=== PATIENT | female | born 1940 | race Caucasian/White ===

== ENCOUNTER → 2017-02-27 | Day surgery (SDC) | payer OTHER ==
--- NOTE | 2017-03-01 11:48 | PATH ---
Surgical Pathology Report Patient Name: PAYAM HOOKS [facility]. Rec. #: [id number] /Age/Gender: 1940 (Age: 76) / F Account: [id number] Location: [facility] RADIOLOGY U Taken: 02/27/2017 Received: 02/27/2017 Reported: 03/01/2017 Physicians: Hermilo Britton M.D. Specimen(s) Received LEFT BREAST CORE BIOPSY 12:00, 4CM FN Clinical History Ultrasound findings: Suspicious Final Diagnosis BREAST, LEFT, 12:00, 4 CMFN, CORE BIOPSY: BENIGN PREDOMINANTLY FATTY BREAST TISSUE WITH FOCAL DENSE HYALINIZING FIBROSIS AND HISTIOCYTIC CELL REACTION CONSISTENT WITH FAT NECROSIS. NEGATIVE FOR MALIGNANCY. Electronically Signed Meagan Fam M.D. Gross Description Received in formalin labeled "left breast biopsy 12:00, 4 cmfn," is a 1.6 x 1.5 x 0.2 cm aggregate of multiple matthew-yellow, irregular to cylindrical portions of fibroadipose tissue. The formalin is filtered and the specimen is entirely submitted in one cassette. Time to formalin fixation: 2 minutes Total formalin fixation time: Approximately 6 hours. /02/27/2017 saudi02/27/2017
== END | disposition home or self-care (01) ==
LOC: FRADUS-SUR 12:56
PROVIDERS: ATTEND Surgery Surgical Oncology
PROC: 0HBU3ZX Excision of Left Breast, Percutaneous Approach, Diagnostic (ICD-10-PCS; principal; 2017-02-27)
DX: N63.20 Unspecified lump in the left breast, unspecified quadrant (principal); N64.89 Other specified disorders of breast
CPT/HCPCS: 19083; 87899; 88305-TC; A4648; G0206-TC

== ENCOUNTER 2018-02-28 13:10 | Emergency (ER) | payer OTHER ==
[2018-02-28 13:25] VITALS: BP 151/79; PULSE 62; TEMP 98.1; BMI 20.7
--- NOTE | 2018-02-28 13:43 | PDOC ---
History of Present Illness - General Chief Complaint: Injury Stated Complaint: fall Time Seen by Provider: 02/28/18 13:43 - History of Present Illness Initial Comments: 02/28/18 15:14 Chief complaint: Discoloration of the face History of present illness: On Monday, patient tripped over rug, struck the left side of her face on the door jam. No loss of consciousness, no significant pain, visual or neurologic symptoms, or abrasion laceration. Today she noticed discoloration around the eye and the left cheek. Came in at the suggestion of a friend. Review of systems: Denies blurred or double vision, facial or head pain, neck pain, chest pain, shortness of breath, abdominal pain, nausea, vomiting, diarrhea, focal neurologic symptoms, unsteadiness of gait. Remainder systems reviewed and found to be negative. Past medical history: Breast cancer in remission. NH, mitral valve disease. No diabetes Social/family history reviewed and noncontributory Physical exam: Alert oriented 3 well-developed well-nourished in no acute distress cheerful and cooperative. Denies any pain or other discomfort associated with injury, fully active without any neurological symptoms Afebrile, vital signs normal Head atraumatic. PERRLA, fundi benign with sharp disc margins and good central venous pulsations, ENT clear. There is ecchymoses in the soft tissues around the left eye and tracking down the left cheek. There is no swelling or induration. There is no tenderness of the facial bones including the orbit, maxilla, or mandible. There is no sensory deficit in V2. EOMs are full without diplopia. Visual ortiz are intact. Conjunctivae are clear. Corneas clear. Anterior chamber clear. Neck without tenderness or deformity, full range of motion without pain. Chest clear, full breath sounds bilaterally, no chest wall or rib cage tenderness or deformity CV regular without murmur rub or gallop Abdomen soft nontender without mass or organomegaly No tenderness or deformity of the pelvis or spine Neurological C2 to 12 intact. Strength full and symmetric. No focal sensory or motor deficits. Cerebellar intact. Gait stable and unimpaired Impression: Facial contusion, no sign of significant head injury, facial fracture, or eye trauma Plan: Reassure. Since there is no pain, medication as not needed. Follow-up if symptoms develop. Fully ambulatory and cheerful, without pain or other symptoms at discharge with to follow-up as needed. Past History - Past Medical History Allergies/Adverse Reactions: Allergies Allergy/AdvReac Type Severity Reaction Status Date / Time Sulfa (Sulfonamide Allergy Severe Itching Verified 02/28/18 13:11 Antibiotics) epinephrine AdvReac Intermediate PALPITATION Verified 02/28/18 13:11 Home Medications: Ambulatory Orders Atorvastatin Ca [Lipitor] 80 mg PO HS 07/15/14 Famotidine [Pepcid -] 20 mg PO BID 07/15/14 Folic Acid - 1 mg PO DAILY 07/15/14 Latanoprost 0.005% Eye Drops [Xalatan 0.005% Eye Drops -] 1 drop OU HS 07/15/14 Multivitamins [Multivit ([facility] Formul[facility])] 1 tab PO DAILY 07/15/14 Nebivolol HCl [Bystolic] 5 mg PO HS 07/15/14 [place]-3 Fatty Acids [[place]-3] 2,000 mg PO BID 07/15/14 Ranolazine [Ranexa] 500 mg PO BID 07/15/14 Aspirin 81 mg PO DAILY 02/28/18 Anemia: No Asthma: No Cancer: Yes (RT BREAST) Cardiac Disorders: Yes (NH 2009) CVA: No COPD: No CHF: No Dementia: No Diabetes: No GI Disorders: No Disorders: No HTN: Yes Hypercholesterolemia: Yes Liver Disease: No Seizures: No Thyroid Disease: No - Surgical History Abdominal Surgery: No Appendectomy: No Cardiac Surgery: Yes (ANGIOPLASTY 2009) Cholecystectomy: No Lung Surgery: No Neurologic Surgery: No Orthopedic Surgery: Yes (RIGHT THR 2009) - Immunization History Td Vaccination: Yes TDAP Vaccination: Yes Immunization Up to Date: Yes - Suicide/Smoking/Psychosocial Hx Smoking History: Never smoked Have you smoked in the past 12 months: No Hx Alcohol Use: No Drug/Substance Use Hx: No Substance Use Type: None Hx Substance Use Treatment: No *Physical Exam - Vital Signs Last Vital Signs Temp Pulse Resp BP Pulse Ox 98.1 F 62 18 151/79 100 02/28/18 13:11 02/28/18 13:11 02/28/18 13:11 02/28/18 13:11 02/28/18 13:11 *DC/Admit/Observation/Transfer Diagnosis at time of Disposition: Facial contusion Qualifiers: Encounter type: initial encounter Qualified Code(s): S00.83XA - Contusion of other part of head, initial encounter - Discharge Dispostion Disposition: HOME Condition at time of disposition: Stable - Referrals - Patient Instructions Printed Discharge Instructions: DI for Contusion - Post Discharge Activity
== END 2018-02-28 13:57 | disposition home or self-care (01) ==
LOC: FER 13:10
DX: S00.83XA Contusion of other part of head, initial encounter (principal); W18.39XA Other fall on same level, initial encounter; Y93.89 Activity, other specified; Y92.009 Unspecified place in unspecified non-institutional (private) residence as the place of occurrence of the external cause; Z85.3 Personal history of malignant neoplasm of breast; I10 Essential (primary) hypertension; E78.00 Pure hypercholesterolemia, unspecified; I25.2 Old myocardial infarction
CPT/HCPCS: 99282-25

== ENCOUNTER 2022-07-26 10:36 | Emergency (ER) | payer OTHER ==
[2022-07-26 11:00] VITALS: BP 166/90; PULSE 67; RESP 18; TEMP 98; BMI 18.5
[2022-07-26] MEDS ORDERED: MECLIZINE HCL 25 MG TABLET (FP) PO ONE (11:06)
[2022-07-26] MEDS ORDERED: MECLIZINE HCL 25 MG TABLET (FP) ONE (11:09)
== END 2022-07-26 13:08 | disposition home or self-care (01) ==
LOC: FER 10:36
DX: H81.11 Benign paroxysmal vertigo, right ear (principal)
CPT/HCPCS: 70450-TC; 99284-25

== ENCOUNTER 2023-01-03 06:35 | Day surgery (SDC) | payer OTHER ==
[2022-12-26 12:23] VITALS: BMI 18.5
[2023-01-03] MEDS ORDERED: TROPICAMIDE 1% OPHTH SOLN 15 ML BOTTLE ONE (06:38)
[2023-01-03] MEDS ORDERED: CYCLOPENTOLATE HCL 1% OPHTH SOLN 2 ML BOTTLE ONE (06:38)
[2023-01-03] MEDS ORDERED: PHENYLEPHRINE 2.5% OPTHALMIC DROP 2ML BOTTLE ONE (06:38)
[2023-01-03] MEDS: KETOROLAC TROMETHAMINE 0.5% EYE DROP 1 DROP DROPS OS SCH ×3 (07:05→07:15)
[2023-01-03] MEDS: OFLOXACIN 0.3% OPHTHALMIC SOLUTION 5 ML BOTTLE OS SCH ×3 (07:05→07:15)
[2023-01-03] MEDS: TROPICAMIDE 1% OPHTH SOLN 15 ML BOTTLE OS SCH ×3 (07:05→07:15)
[2023-01-03] MEDS: PHENYLEPHRINE 2.5% OPHTH SOLN 15 ML BOTTLE OS SCH ×3 (07:05→07:15)
[2023-01-03] MEDS: CYCLOPENTOLATE HCL 1% OPHTH SOLN 2 ML BOTTLE OS SCH ×3 (07:05→07:15)
[2023-01-03 07:08] VITALS: RESP 16
[2023-01-03] MEDS ORDERED: EPINEPHrine/PF 1 MG/1 ML (1:1,000) AMPULE ONE (07:19)
[2023-01-03] MEDS ORDERED: PHENYLEPHRINE/KETOROLAC 4 ML VIAL IO ONE (07:19)
[2023-01-03] MEDS ORDERED: TRYPAN BLUE 0.5 ML DISP.SYRIN ONE (07:19)
[2023-01-03] MEDS ORDERED: EPI-SHUGARCAINE (EPINEPHRINE 0.025% & LIDOCAINE-PF 0.75%) 4ML ONE (07:19)
[2023-01-03] MEDS ORDERED: BETAXOLOL HCL 0.25% OPHTHALMIC 10 ML DROPSBTL ONE (07:19)
[2023-01-03] MEDS ORDERED: BACITRACIN/POLYMYXIN OPH OINT 3.5 GM TUBE ONE (07:19)
[2023-01-03] MEDS ORDERED: ACETYLCHOLINE 1:100 INTRA-OCUL 20 MG/2 ML KIT ONE (07:20)
[2023-01-03] MEDS ORDERED: POVIDONE-IODINE 5% OPHTHALMIC PREP 30 ML SOLUTION ONE (07:20)
[2023-01-03] MEDS ORDERED: NEO/POLYMYX B SULF/DEXAMETH OPHTHALMIC 5ML BOTTLE ONE (07:20)
[2023-01-03] MEDS ORDERED: TETRACAINE 0.5% OPHTH SOLN 2 ML BOTTLE ONE (07:20)
[2023-01-03] MEDS ORDERED: BSS (NA/CA/MG/K) BALANCED SALT SOLUTION OPHTH SOLN 15 ML BOTTLE ONE (07:20)
[2023-01-03] MEDS ORDERED: ACETAMINOPHEN 325 MG TABLET (FP) PO PRN ×3 (07:39→09:21)
[2023-01-03] MEDS ORDERED: MIDAZOLAM HCL 2 MG/2 ML SINGLE DOSE VIAL ONE (07:57)
[2023-01-03] MEDS ORDERED: ONDANSETRON 4 MG/2 ML VIAL ONE (08:37)
[2023-01-03 09:32] VITALS: TEMP 97.9
[2023-01-03 10:01] VITALS: BP 108/61; PULSE 64
== END 2023-01-03 09:55 | disposition home or self-care (01) ==
LOC: FASU 06:35
PROVIDERS: ATTEND Ophthalmology
PROC: 08RK3JZ Replacement of Left Lens with Synthetic Substitute, Percutaneous Approach (ICD-10-PCS; principal; 2023-01-03 08:46)
DX: H25.89 Other age-related cataract (principal)
CPT/HCPCS: 66984; V2632; J1097

== ENCOUNTER 2023-03-18 16:08 | Inpatient (IN) | payer OTHER ==
[2023-03-18] MEDS ORDERED: SODIUM CHLORIDE 0.9% 500 ML INFUS.BAG IV ONE (17:39)
[2023-03-18 17:46] LABS: BASO % 0.3 % (0-2.0); EOS % 0.6 % (0-4.5); HEMATOCRIT 37.4 % (32.4-45.2); HEMOGLOBIN 12.9 GM/dL (10.7-15.3); LYMPH % 10.7 % (8-40); MCH 31.4 pg (25.7-33.7); MCHC 34.4 g/dl (32.0-36.0); MEAN CELL VOLUME 91.4 fl (80-96); MONO % 2.1 % (3.8-10.2); NEUT % 86.3 % (42.8-82.8); PLATELET COUNT 128 10^3/uL (134-434); RDW 14.8 % (11.6-15.6)
[2023-03-18 18:05] LABS: INR 1.09 (0.83-1.09); PROTHROMBIN TIME (PATIENT) 12.6 SEC (9.7-13.0)
[2023-03-18 18:08] LABS: ACTIVATED PTT 29.4 SECONDS (25.2-36.5)
[2023-03-18 18:09] LABS: POTASSIUM 5.1 mmol/L (3.5-5.1)
[2023-03-18 18:11] LABS: ALBUMIN 3.7 g/dl (3.4-5.0); BLOOD UREA NITROGEN 32.5 mg/dL (7-18); CALCIUM 8.7 mg/dL (8.5-10.1); MAGNESIUM 2.5 mg/dL (1.8-2.4)
[2023-03-18 18:14] LABS: CREATININE 1.4 mg/dL (0.55-1.3)
[2023-03-18 18:17] LABS: BILIRUBIN,TOTAL 1.1 mg/dL (0.2-1); TOT PROT 6.8 g/dl (6.4-8.2)
[2023-03-18] MEDS ORDERED: ACETAMINOPHEN 1000 MG/100 ML BAG IVPB ONE (19:15)
[2023-03-18] MEDS ORDERED: ACETAMINOPHEN INJECTION 100 ML IVPB ONE (20:52)
[2023-03-18] MEDS: SODIUM CHLORIDE 1,000 ML IV SCH (21:20)
[2023-03-18] MEDS ORDERED: OSELTAMIVIR PHOSPHATE 75 MG CAPSULE ONE (21:23)
[2023-03-18] MEDS: OSELTAMIVIR PHOSPHATE 30 MG CAPSULE PO SCH (21:29)
[2023-03-18 21:54] LABS: POTASSIUM 4.5 mmol/L (3.5-5.1)
[2023-03-18 21:56] LABS: CALCIUM 7.5 mg/dL (8.5-10.1)
[2023-03-18 21:56] LABS: BILIRUBIN,DIRECT 0.2 mg/dL (0.0-0.2)
[2023-03-18 21:57] LABS: BLOOD UREA NITROGEN 32.7 mg/dL (7-18)
[2023-03-18] MEDS ORDERED: ACETAMINOPHEN 325 MG TABLET (FP) PO PRN (21:57)
[2023-03-18 21:59] LABS: CREATININE 1.2 mg/dL (0.55-1.3)
[2023-03-18 22:02] LABS: EPI CELLS 12 /uL (0-25.1); HYALINE CASTS 6 /uL (0-3.1); URINE APPEARANCE CLOUDY; URINE BILIRUBIN 2+ (NEGATIVE); URINE COLOR DK YELLOW; URINE GLUCOSE (UA) NEGATIVE (NEGATIVE); URINE KETONE TRACE (NEGATIVE); URINE LEUK ESTERASE 1+ (NEGATIVE); URINE NITRITE POSITIVE (NEGATIVE); URINE PROTEIN 1+ (NEGATIVE); URINE RBC 14 /uL (0-23.9); URINE WBC 19 /uL (0-25.8)
[2023-03-18] MEDS ORDERED: HEPARIN NA (PORCINE) 5,000 UNITS/ML 1ML VIAL ONE (22:18)
[2023-03-18] MEDS: HEPARIN NA (PORCINE) 5,000 UNITS/ML 1ML VIAL SQ SCH (22:22)
[2023-03-18] MEDS ORDERED: SODIUM CHLORIDE 1,000 ML IV STA (22:50)
[2023-03-18 23:26] LABS: URINE BACTERIA 4.8 /uL (0-1359); URINE CRYSTALS NONE SEEN /hpf
[2023-03-19] MEDS ORDERED: CALCIUM CARBONATE 650 MG TABLET PO SCH (01:25)
[2023-03-19] MEDS: CALCIUM CARBONATE 650 MG TABLET PO SCH ×2 (02:49→12:06)
[2023-03-19] MEDS ORDERED: ATORVASTATIN CA 20 MG TABLET (FP) ONE ×2 (09:48→21:42)
[2023-03-19 09:49] LABS: PHOSPHOROUS 3.8 mg/dL (2.5-4.9)
[2023-03-19] MEDS ORDERED: FOLIC ACID 1 MG TABLET (FP) ONE ×2 (09:49→21:43)
[2023-03-19] MEDS ORDERED: HEPARIN NA (PORCINE) 5,000 UNITS/ML 1ML VIAL ONE (09:49)
[2023-03-19] MEDS: ATORVASTATIN CA 20 MG TABLET (FP) PO SCH (10:00)
[2023-03-19] MEDS: FOLIC ACID 1 MG TABLET (FP) PO SCH (10:00)
[2023-03-19] MEDS ORDERED: OMEGA-3 ACID ETHYL ESTERS (FATTY-ACIDS) 1 GM CAPSULE (FP) PO SCH (10:00)
[2023-03-19] MEDS: HEPARIN NA (PORCINE) 5,000 UNITS/ML 1ML VIAL SQ SCH (10:00)
[2023-03-19 11:52] LABS: BASO % 0.2 % (0-2.0); EOS % 0.5 % (0-4.5); HEMATOCRIT 31.8 % (32.4-45.2); HEMOGLOBIN 10.6 GM/dL (10.7-15.3); LYMPH % 9.9 % (8-40); MCH 30.7 pg (25.7-33.7); MCHC 33.2 g/dl (32.0-36.0); MEAN CELL VOLUME 92.5 fl (80-96); MEAN PLT VOLUME 8.1 fl (7.5-11.1); MONO % 4.5 % (3.8-10.2); NEUT % 84.9 % (42.8-82.8); PLATELET COUNT 105 10^3/uL (134-434); RBC 3.44 M/mm3 (3.60-5.2); RDW 14.4 % (11.6-15.6); WHITE BLOOD COUNT 6.3 K/mm3 (4.0-10.0)
[2023-03-19] MEDS: OSELTAMIVIR PHOSPHATE 30 MG CAPSULE PO SCH (12:06)
[2023-03-19 12:16] LABS: POTASSIUM 3.9 mmol/L (3.5-5.1)
[2023-03-19 12:20] LABS: BLOOD UREA NITROGEN 25.6 mg/dL (7-18); CALCIUM 7.6 mg/dL (8.5-10.1); MAGNESIUM 2.1 mg/dL (1.8-2.4)
[2023-03-19 12:24] LABS: PHOSPHOROUS 3.1 mg/dL (2.5-4.9)
[2023-03-19 12:25] LABS: BILIRUBIN,TOTAL 0.7 mg/dL (0.2-1)
[2023-03-19 12:26] LABS: TOT PROT 5.2 g/dl (6.4-8.2)
[2023-03-19 12:29] LABS: ALBUMIN 2.7 g/dl (3.4-5.0)
[2023-03-19] MEDS ORDERED: SODIUM CHLORIDE 500 ML IV STA (13:19)
[2023-03-19] MEDS ORDERED: ENOXAPARIN NA (PORCINE) 40 MG/0.4 ML DISP.SYRIN SQ SCH ×2 (13:30→14:00)
[2023-03-19] MEDS: METOPROLOL TARTRATE 25 MG TABLET (FP) PO SCH ×2 (17:35→21:45)
[2023-03-19 18:17] LABS: ALLENS TEST POSITIVE; ARTERIAL BLD GAS O2 SATURATION 86.7 % (95-98); ARTERIAL BLOOD GAS BASE EXCESS -5.1 mmol/L (-2-2); ARTERIAL BLOOD GAS PO2 49.3 mmHg (80-100)
[2023-03-19] MEDS ORDERED: METOPROLOL TARTRATE 25 MG TABLET (FP) ONE (21:42)
[2023-03-19] MEDS ORDERED: ASPIRIN 81 MG CHEWABLE TABLETS ONE (21:43)
[2023-03-19] MEDS ORDERED: CEFTRIAXONE 1 GM/50 ML BAG ONE (21:43)
[2023-03-19] MEDS: SODIUM CHLORIDE 1,000 ML IV SCH (21:45)
[2023-03-19] MEDS: ASPIRIN 81 MG CHEWABLE TABLETS PO SCH (21:45)
[2023-03-19] MEDS: CEFTRIAXONE 1 GM in DEXTROSE 5%-WATER 100 ML IVPB SCH (21:45)
[2023-03-19] MEDS: EZETIMIBE 10 MG TABLET (FP) PO SCH (23:15)
[2023-03-19] MEDS: OMEGA-3 ACID ETHYL ESTERS (FATTY-ACIDS) 1 GM CAPSULE (FP) PO SCH (23:15)
[2023-03-20 07:50] LABS: BASO % 0.2 % (0-2.0); HEMATOCRIT 27.7 % (32.4-45.2); HEMOGLOBIN 9.6 GM/dL (10.7-15.3); LYMPH % 19.2 % (8-40); MCH 30.9 pg (25.7-33.7); MCHC 34.5 g/dl (32.0-36.0); MEAN CELL VOLUME 89.4 fl (80-96); MEAN PLT VOLUME 8.4 fl (7.5-11.1); MONO % 7.3 % (3.8-10.2); NEUT % 71.3 % (42.8-82.8); PLATELET COUNT 107 10^3/uL (134-434); RBC 3.09 M/mm3 (3.60-5.2); RDW 14.4 % (11.6-15.6); WHITE BLOOD COUNT 4.9 K/mm3 (4.0-10.0)
[2023-03-20 08:11] LABS: POTASSIUM 4.2 mmol/L (3.5-5.1)
[2023-03-20 08:15] LABS: CALCIUM 7.8 mg/dL (8.5-10.1)
[2023-03-20 08:16] LABS: BLOOD UREA NITROGEN 16.4 mg/dL (7-18)
[2023-03-20 08:18] LABS: CREATININE 0.7 mg/dL (0.55-1.3)
[2023-03-20 08:20] LABS: IRON SERUM 13 ug/dL (50-175); TOTAL IRON BINDING CAPACITY 249 ug/dL (250-450)
[2023-03-20] MEDS ORDERED: ENOXAPARIN NA (PORCINE) 40 MG/0.4 ML DISP.SYRIN SQ SCH (10:00)
[2023-03-20] MEDS: ATORVASTATIN CA 20 MG TABLET (FP) PO SCH (10:26)
[2023-03-20] MEDS: METOPROLOL TARTRATE 25 MG TABLET (FP) PO SCH ×2 (10:27→21:34)
[2023-03-20] MEDS: OMEGA-3 ACID ETHYL ESTERS (FATTY-ACIDS) 1 GM CAPSULE (FP) PO SCH ×2 (10:30→21:34)
[2023-03-20] MEDS: FOLIC ACID 1 MG TABLET (FP) PO SCH (10:30)
[2023-03-20] MEDS: CEFTRIAXONE 1 GM in DEXTROSE 5%-WATER 100 ML IVPB SCH (10:30)
[2023-03-20] MEDS: OSELTAMIVIR PHOSPHATE 30 MG CAPSULE PO SCH ×2 (10:30→21:34)
[2023-03-20 14:13] VITALS: BMI 18.3
[2023-03-20] MEDS ORDERED: BISACODYL 10 MG SUPP.RECT PR PRN (17:00)
[2023-03-20] MEDS: ASPIRIN 81 MG CHEWABLE TABLETS PO SCH (21:33)
[2023-03-20] MEDS: EZETIMIBE 10 MG TABLET (FP) PO SCH (21:33)
[2023-03-20] MEDS ORDERED: BISACODYL 10 MG SUPP.RECT PR SCH (22:00)
[2023-03-21 06:57] LABS: BASO % 0.3 % (0-2.0); EOS % 3.2 % (0-4.5); HEMATOCRIT 27.8 % (32.4-45.2); HEMOGLOBIN 9.6 GM/dL (10.7-15.3); MCH 31.3 pg (25.7-33.7); MCHC 34.4 g/dl (32.0-36.0); MEAN CELL VOLUME 90.9 fl (80-96); MEAN PLT VOLUME 8.4 fl (7.5-11.1); NEUT % 69.5 % (42.8-82.8); PLATELET COUNT 112 10^3/uL (134-434); RBC 3.06 M/mm3 (3.60-5.2); RDW 14.5 % (11.6-15.6); WHITE BLOOD COUNT 4.9 K/mm3 (4.0-10.0)
[2023-03-21 07:15] LABS: POTASSIUM 3.7 mmol/L (3.5-5.1)
[2023-03-21 07:21] LABS: CALCIUM 8.1 mg/dL (8.5-10.1)
[2023-03-21 07:22] LABS: ALBUMIN 2.8 g/dl (3.4-5.0); BLOOD UREA NITROGEN 10.9 mg/dL (7-18); MAGNESIUM 1.9 mg/dL (1.8-2.4)
[2023-03-21 07:24] LABS: BILIRUBIN,TOTAL 0.8 mg/dL (0.2-1); CREATININE 0.7 mg/dL (0.55-1.3); TOT PROT 5.5 g/dl (6.4-8.2)
[2023-03-21] MEDS: FOLIC ACID 1 MG TABLET (FP) PO SCH (09:47)
[2023-03-21] MEDS: METOPROLOL TARTRATE 25 MG TABLET (FP) PO SCH ×2 (09:47→21:11)
[2023-03-21] MEDS: ATORVASTATIN CA 20 MG TABLET (FP) PO SCH (09:48)
[2023-03-21] MEDS: OSELTAMIVIR PHOSPHATE 30 MG CAPSULE PO SCH ×2 (09:49→21:11)
[2023-03-21] MEDS: OMEGA-3 ACID ETHYL ESTERS (FATTY-ACIDS) 1 GM CAPSULE (FP) PO SCH ×2 (09:49→21:11)
[2023-03-21] MEDS: EZETIMIBE 10 MG TABLET (FP) PO SCH (21:11)
[2023-03-21] MEDS: ASPIRIN 81 MG CHEWABLE TABLETS PO SCH (21:11)
[2023-03-22] MEDS: ATORVASTATIN CA 20 MG TABLET (FP) PO SCH (10:04)
[2023-03-22] MEDS: OSELTAMIVIR PHOSPHATE 30 MG CAPSULE PO SCH (10:05)
[2023-03-22] MEDS: OMEGA-3 ACID ETHYL ESTERS (FATTY-ACIDS) 1 GM CAPSULE (FP) PO SCH ×2 (10:05→21:28)
[2023-03-22] MEDS: FOLIC ACID 1 MG TABLET (FP) PO SCH (10:05)
[2023-03-22] MEDS: METOPROLOL TARTRATE 25 MG TABLET (FP) PO SCH ×2 (10:05→21:28)
[2023-03-22] MEDS: NAPH,MB-DB/K PH,MBDB POWDER PACKET PO SCH (21:30)
[2023-03-22] MEDS: ASPIRIN 81 MG CHEWABLE TABLETS PO SCH (21:30)
[2023-03-22] MEDS: EZETIMIBE 10 MG TABLET (FP) PO SCH (21:30)
[2023-03-23] MEDS: METOPROLOL TARTRATE 25 MG TABLET (FP) PO SCH (09:20)
[2023-03-23] MEDS: FOLIC ACID 1 MG TABLET (FP) PO SCH (09:20)
[2023-03-23] MEDS: ATORVASTATIN CA 20 MG TABLET (FP) PO SCH (09:22)
[2023-03-23] MEDS: NAPH,MB-DB/K PH,MBDB POWDER PACKET PO SCH (09:23)
[2023-03-23] MEDS: OMEGA-3 ACID ETHYL ESTERS (FATTY-ACIDS) 1 GM CAPSULE (FP) PO SCH (09:23)
[2023-03-23] MEDS ORDERED: OSELTAMIVIR PHOSPHATE 75 MG CAPSULE PO SCH (10:00)
[2023-03-23 11:27] VITALS: RESP 16
[2023-03-23 15:30] VITALS: BP 142/60; PULSE 65; TEMP 98.2
== END 2023-03-23 15:57 | disposition home or self-care (01) | DRG 281 ==
LOC: JER 16:08 → JERBED 20:01 → J4S 03-20 01:04 → OBSVTOIN 03-20 15:57
PROVIDERS: ADMIT Internal Medicine Geriatric Medicine; ATTEND Internal Medicine
DX: R55 Syncope and collapse (principal); I21.4 Non-ST elevation (NSTEMI) myocardial infarction; E87.1 Hypo-osmolality and hyponatremia; N17.9 Acute kidney failure, unspecified; I50.30 Unspecified diastolic (congestive) heart failure; I24.89 Other forms of acute ischemic heart disease; I25.10 Atherosclerotic heart disease of native coronary artery without angina pectoris; E03.9 Hypothyroidism, unspecified; E78.5 Hyperlipidemia, unspecified; D50.9 Iron deficiency anemia, unspecified; R00.1 Bradycardia, unspecified; K59.00 Constipation, unspecified; E83.51 Hypocalcemia; E11.9 Type 2 diabetes mellitus without complications; E86.0 Dehydration; D69.6 Thrombocytopenia, unspecified; J10.1 Influenza due to other identified influenza virus with other respiratory manifestations; I08.3 Combined rheumatic disorders of mitral, aortic and tricuspid valves; I11.0 Hypertensive heart disease with heart failure; M71.20 Synovial cyst of popliteal space [Baker], unspecified knee; S00.83XA Contusion of other part of head, initial encounter; W18.30XA Fall on same level, unspecified, initial encounter; Y92.091 Bathroom in other non-institutional residence as the place of occurrence of the external cause; Y99.9 Unspecified external cause status; Z85.3 Personal history of malignant neoplasm of breast
CPT/HCPCS: 0241U-QW; 36415; 36600; 70450-TC; 70486-TC; 71045-TC-FY; 72125-TC; 73521-TC-FY; 76775-TC; 80048; 80053; 81003; 82248; 82550; 82553; 82803; 82962; 83540; 83550; 83735; 84100; 84443; 84484; 85025; 85379; 85610; 85730; 86140; 86850; 86900; 86901; 87086; 93005; 93010; 93306-TC; 93970-TC; 94761; 97116-GP; 97161-GP; 99285-25; G0378; J1644